=== PATIENT | male | born 1955 | race Two or more races ===

== ENCOUNTER 2024-02-09 23:49 | Inpatient (IN) | payer OTHER ==
[~2024-02-09] VITALS: Ht 172.7 cm; Wt 167.8 kg
[~2024-02-09 23:49] MED LIST: COZAAR50 MG; FENOFIBRATE54 MG; FINASTERIDE5 MG; LIPITOR40 MG; NEURONTIN; TRAZODONE HCL50 MG; ZANTAC 150; [UNRECOGNIZED DRUG - OTHER]
[2024-02-10] MEDS ORDERED: CHILDREN'S ASPI81 MG PO (00:05)
[2024-02-10] MEDS ORDERED: LIPITOR40 MG PO (00:06)
[2024-02-10] MEDS ORDERED: PROSCAR5 MG PO (00:06)
[2024-02-10] MEDS ORDERED: SEROQUEL50 MG PO (00:06)
[2024-02-10] MEDS ORDERED: PROTONIX40 M1 PO (00:06)
[2024-02-10] MEDS ORDERED: NORVASC5 MG PO (00:06)
[2024-02-10] MEDS ORDERED: TAMS0.4C (00:06)
[2024-02-10] MEDS ORDERED: WELLBUTRIN XL300 MG PO (00:06)
[2024-02-10] MEDS ORDERED: TRAZODONE HCL100 MG PO (00:07)
[2024-02-10] MEDS ORDERED: MELATONIN10 MG (00:07)
[2024-02-10] MEDS ORDERED: ZETIA10 MG PO (00:07)
[2024-02-10] MEDS ORDERED: MIRTAZAPINE15 M1 PO (00:07)
[2024-02-10] MEDS ORDERED: LOSARTAN POTASS50 MG PO (00:07)
[2024-02-10] MEDS ORDERED: CLONAZEPAM1 MG PO (00:08)
[2024-02-10] MEDS ORDERED: NEURONTIN300 MG PO (00:08)
[2024-02-10] MEDS ORDERED: ZYLOPRIM100 M1 PO (00:08)
[2024-02-10] MEDS ORDERED: HYOSCYAMINE SULFATE 0.125 MG TAB.SUBL SL STA (00:51)
[2024-02-10] MEDS ORDERED: ONDANSETRON HCL 2 MG/ML VIAL IV STA (00:51)
[2024-02-10] MEDS ORDERED: LACTOBACILLUS ACIDOPHILUS 1 CAP CAP PO STA (00:52)
[2024-02-10] MEDS ORDERED: FAMOTIDINE/PF 20 MG/2 ML VIAL IV PUSH STA (00:52)
[2024-02-10] MEDS ORDERED: 0.9 % SODIUM CHLORIDE 1,000 ML IV ONE (01:00)
[2024-02-10 01:24] LABS: HEMATOCRIT 47.9 % (39.0-48.0); HEMOGLOBIN 15.9 g/dL (13-16.00); MEAN CELL VOLUME 85.1 fL (80.0-100.00); MEAN CORPUSCULAR HEMOGLOBIN 28.3 pg (27.00-32.0); MEAN CORPUSCULAR HGB CONC 33.2 g/dl (32.0-36.0); PLATELET COUNT 266 K/uL (150-450); RED BLOOD COUNT 5.63 M/uL (4.00-6.00); RED CELL DISTRIBUTION WIDTH 15.6 % (11.5-14.5)
[2024-02-10 01:34] LABS: CALCIUM 10.2 mg/dL (8.5-10.1); CREATININE SERUM 1.55 mg/dL (0.70-1.30); GFR 44.55; POTASSIUM 4.14 mEq/L (3.5-5.1)
[2024-02-10 02:05] LABS: URINE APPEARANCE Clear; URINE BILIRRUBIN Negative (NEGATIVE); URINE BLOOD Large; URINE COLOR Dark Yellow; URINE GLUCOSE Negative (NEGATIVE); URINE KETONE 15 (NEGATIVE); URINE LEUKOCYTE Trace; URINE NITRATE Negative; URINE UROBILINOGEN 0.2 E.U./dl
[2024-02-10 02:09] LABS: URINE BACTERIA 110.8 uL (0.0-1933); URINE CAST 3.66 uL (0.0-1.40); URINE EPITHELIAL CELLS 13.4 uL (0.0-38.8); URINE RBC 868.1 uL (0.0-20.8)
[2024-02-10 02:18] LABS: URINE PROTEIN 100 (NEGATIVE)
[2024-02-10] MEDS ORDERED: CIPROFLOXACIN IN 5 % DEXTROSE 400 MG/200 ML PIGGYBAG IV STA (05:14)
[2024-02-10] MEDS ORDERED: TRAMADOL HCL 50 MG TABLET PO STA (05:15)
[2024-02-10] MEDS ORDERED: AMLODIPINE BESYLATE 5 MG TABLET PO STA (07:53)
[2024-02-10] MEDS ORDERED: IRBESARTAN 300 MG TABLET PO STA (07:55)
[2024-02-10] MEDS ORDERED: MEPERIDINE HCL/PF 50 MG/ML VIAL IM STA (09:14)
[2024-02-10] MEDS ORDERED: ACETAMINOPHEN WITH CODEINE 1 UDTAB TABLET PO STA (09:28)
[2024-02-10] MEDS ORDERED: SULFAMETHOXAZOLE/TRIMETHOPRIM 16 MG/ML VIAL IV STA (11:53)
[2024-02-10] MEDS ORDERED: CIPROFLOXACIN IN 5 % DEXTROSE 400 MG/200 ML PIGGYBAG IV ONE (12:15)
[2024-02-10] MEDS ORDERED: cloNIDine HCL 0.2 MG TABLET PO STA (14:22)
[2024-02-10] MEDS ORDERED: AMLODIPINE BESYLATE 5 MG TABLET PO SCH (17:47)
[2024-02-10] MEDS ORDERED: METRONIDAZOLE/SODIUM CHLORIDE 100 ML IV SCH (17:49)
[2024-02-10] MEDS ORDERED: MORPHINE SULFATE 4 MG/ML CARTRIDGE IV ONE (18:00)
[2024-02-10] MEDS ORDERED: MORPHINE SULFATE 4 MG/ML CARTRIDGE IV PRN (18:00)
[2024-02-10] MEDS ORDERED: ACETAMINOPHEN 500 MG GEL..CAP PO PRN (18:00)
[2024-02-10] MEDS ORDERED: 0.9 % SODIUM CHLORIDE 1,000 ML IV SCH (18:00)
[2024-02-10] MEDS ORDERED: ONDANSETRON HCL 4 MG in 0.9 % SODIUM CHLORIDE 50 ML IV PRN (18:00)
[2024-02-10 18:50] LABS: INR 1.09; PARTIAL THROMBOPLASTIN TIME 29.2 SECONDS (22.0-34.0); PROTHROMBIN TIME 11.8 SECONDS (9.0-11.5)
[2024-02-10 19:40] VITALS: BP 164/80
[2024-02-10] MEDS ORDERED: TRAZODONE HCL 50 MG TABLET PO SCH (21:00)
[2024-02-11] MEDS ORDERED: NIFEDIPINE 30 MG TAB.SA.OSM PO STA (01:02)
[2024-02-11 01:09] VITALS: BP 180/100; O2SAT 99
[2024-02-11] MEDS ORDERED: hydrALAZINE HCL 20 MG VIAL IV PRN ×2 (01:15→09:14)
[2024-02-11 01:52] VITALS: BP 170/98; O2SAT 100
[2024-02-11 06:58] LABS: HEMATOCRIT 45.1 % (39.0-48.0); HEMOGLOBIN 15.1 g/dL (13-16.00); MEAN CELL VOLUME 85.4 fL (80.0-100.00); MEAN CORPUSCULAR HEMOGLOBIN 28.5 pg (27.00-32.0); MEAN CORPUSCULAR HGB CONC 33.4 g/dl (32.0-36.0); PLATELET COUNT 245 K/uL (150-450); RED BLOOD COUNT 5.28 M/uL (4.00-6.00)
[2024-02-11 07:25] LABS: ALBUMIN 3.9 gm/dL (3.4-5.0); BILIRUBIN TOTAL 1.12 mg/dL (0.3-1.2); CALCIUM 8.7 mg/dL (8.5-10.1); CREATININE SERUM 1.23 mg/dL (0.70-1.30); GFR 58.17; MAGNESIUM 2.4 mg/dL (1.8-2.4); PHOSPHOROUS 3.6 mg/dL (2.5-4.9); POTASSIUM 4.01 mEq/L (3.5-5.1); TOTAL PROTEIN 6.9 gm/dL (6.4-8.2)
[2024-02-11 07:29] LABS: C-REACTIVE PROTEIN 0.65 MG/DL (0.00-0.29)
[2024-02-11 08:35] VITALS: BP 163/96; O2SAT 99
[2024-02-11] MEDS ORDERED: NIFEDIPINE 30 MG TAB.SA.OSM PO SCH (09:00)
[2024-02-11] MEDS ORDERED: QUETIAPINE FUMARATE 25 MG TABLET PO SCH (09:00)
[2024-02-11] MEDS ORDERED: CIPROFLOXACIN IN 5 % DEXTROSE 200 ML IV SCH (09:00)
[2024-02-11] MEDS ORDERED: TAMSULOSIN HCL 0.4 MG CAP PO SCH (09:00)
[2024-02-11] MEDS ORDERED: ENOXAPARIN SODIUM 40 MG/0.4 ML SYRINGE SUBCUTANEO SCH (09:00)
[2024-02-11] MEDS ORDERED: PANTOPRAZOLE SODIUM 40 MG/VIAL VIAL IV SCH (09:00)
[2024-02-11] MEDS ORDERED: LOSARTAN POTASSIUM 50 MG TABLET PO SCH (09:00)
[2024-02-11] MEDS ORDERED: ALLOPURINOL 100 MG TABLET PO SCH (09:00)
[2024-02-11] MEDS ORDERED: SODIUM CHLORIDE 0.45 % 1,000 ML IV SCH (16:00)
[2024-02-11] MEDS ORDERED: NIFEDIPINE 60 MG TAB.SA.OSM PO SCH (17:00)
[2024-02-11 18:23] VITALS: BP 131/85; O2SAT 96
[2024-02-12 01:10] VITALS: BP 116/78; O2SAT 96
[2024-02-12 08:35] VITALS: BP 156/84; O2SAT 98
[2024-02-12 17:50] VITALS: BP 152/80; O2SAT 98
[2024-02-13 00:45] VITALS: BP 154/82
[2024-02-13 07:47] LABS: HEMATOCRIT 45.5 % (39.0-48.0); HEMOGLOBIN 15.5 g/dL (13-16.00); MEAN CELL VOLUME 83.3 fL (80.0-100.00); MEAN CORPUSCULAR HEMOGLOBIN 28.3 pg (27.00-32.0); PLATELET COUNT 223 K/uL (150-450); RED BLOOD COUNT 5.45 M/uL (4.00-6.00)
[2024-02-13 07:50] LABS: ALBUMIN 3.8 gm/dL (3.4-5.0); CALCIUM 8.6 mg/dL (8.5-10.1); CREATININE SERUM 1.11 mg/dL (0.70-1.30); GFR 65.49; MAGNESIUM 2.2 mg/dL (1.8-2.4); PHOSPHOROUS 2.7 mg/dL (2.5-4.9); POTASSIUM 3.48 mEq/L (3.5-5.1)
[2024-02-13 08:01] LABS: PH,URINE 5.5 (5.0-8.0); URINE APPEARANCE Clear; URINE BILIRRUBIN Negative (NEGATIVE); URINE BLOOD Small; URINE COLOR Yellow; URINE GLUCOSE Negative (NEGATIVE); URINE LEUKOCYTE Trace; URINE NITRATE Negative; URINE PROTEIN Negative (NEGATIVE); URINE UROBILINOGEN 0.2 E.U./dl
[2024-02-13 08:02] LABS: URINE BACTERIA 18.8 uL (0.0-1933); URINE EPITHELIAL CELLS 2.3 uL (0.0-38.8); URINE RBC 46.6 uL (0.0-20.8); URINE WBC 5.4 uL (0.0-23.2)
[2024-02-13 08:45] LABS: URINE KETONE 40 (NEGATIVE)
[2024-02-13 09:11] VITALS: BP 160/87; O2SAT 98
[2024-02-13] MEDS ORDERED: MECLIZINE HCL 25 MG TABLET PO NR (14:00)
[2024-02-13 17:27] VITALS: BP 146/79; O2SAT 97
[2024-02-13] MEDS ORDERED: POTASSIUM CHLORIDE 20MEQ/100ML H2O PB IV ONE (21:45)
[2024-02-14 01:01] VITALS: BP 135/69
[2024-02-14 08:33] LABS: ALBUMIN 3.4 gm/dL (3.4-5.0); CALCIUM 8.4 mg/dL (8.5-10.1); CREATININE SERUM 1.02 mg/dL (0.70-1.30); GFR 72.2; PHOSPHOROUS 2.8 mg/dL (2.5-4.9); POTASSIUM 3.63 mEq/L (3.5-5.1)
[2024-02-14 08:40] VITALS: BP 150/82; O2SAT 98
[2024-02-14] MEDS ORDERED: MECLIZINE HCL 25 MG TABLET PO SCH (09:00)
[2024-02-14 17:27] VITALS: BP 150/85; O2SAT 100
[2024-02-15 01:13] VITALS: BP 141/80
[2024-02-15 08:23] VITALS: BP 152/90; O2SAT 99
[2024-02-15 17:23] VITALS: BP 153/89
== END 2024-02-15 22:49 | disposition home or self-care (01) | DRG 872 ==
LOC: ER 23:50 → MEDJ 02-10 18:36
PROVIDERS: General Practice; Internal Medicine; Internal Medicine Infectious Disease; Internal Medicine Nephrology; ADMIT Internal Medicine; ATTEND Internal Medicine
PROC: BW21ZZZ Computerized Tomography (CT Scan) of Abdomen and Pelvis (ICD-10-PCS; principal; 2024-02-10)
PROC: 4A12X4Z Monitoring of Cardiac Electrical Activity, External Approach (ICD-10-PCS; 2024-02-10)
PROC: BW28ZZZ Computerized Tomography (CT Scan) of Head (ICD-10-PCS; 2024-02-11)
DX: A41.9 Sepsis, unspecified organism (principal); N39.0 Urinary tract infection, site not specified; N17.8 Other acute kidney failure; C64.9 Malignant neoplasm of unspecified kidney, except renal pelvis; R42 Dizziness and giddiness; R34 Anuria and oliguria